=== PATIENT | female | born 1970 | race Caucasian/White ===

== ENCOUNTER 2022-07-28 01:15 | Emergency (ER) | payer MEDICAID ==
[~2022-07-28] VITALS: Ht 180.3 cm; Wt 110.7 kg
[2022-07-28 01:27] VITALS: BP_SYST 98
--- NOTE | 2022-07-28 02:00 | NUR ---
Patient to ER bed 01 to gown for evaluation. Side rails up. Report given to KIMBERLY BOOGIE.
[2022-07-28 02:15] LABS: CALCIUM 9.1 mg/dL (8.4-11.0); CREATININE 1.07 mg/dL (0.55-1.30)
[2022-07-28 02:19] LABS: BASOPHILS # (AUTO) 0.1 K/uL (0.0-0.2); BASOPHILS % (AUTO) 0.6 % (0.0-2.0); EOSINOPHILS # (AUTO) 0.6 K/uL (0.0-0.4); EOSINOPHILS % (AUTO) 4.3 % (0.0-4.0); HEMATOCRIT 45.1 % (36-48); HEMOGLOBIN 15.1 g/dL (12.0-16.0); LYMPHOCYTES # (AUTO) 1.3 K/uL (1.0-5.5); MEAN CORPUSCULAR HEMOGLOBIN 30 pg (27-31); MEAN CORPUSCULAR HGB CONC 33 % (32-36); MEAN CORPUSCULAR VOLUME 90 fL (79.0-98.0); MONOCYTES # (AUTO) 0.7 K/uL (0.0-1.0); MONOCYTES % (AUTO) 5.1 % (1.7-9.3); NEUTROPHILS # (AUTO) 10.6 K/uL (1.8-7.7); PLATELET COUNT (AUTO) 388 K/uL (130-430); RED BLOOD CELL COUNT(AUTO) 4.99 MIL/uL (4.2-6.2); RED CELL DISTRIBUTION WIDTH 14.5 % (9.0-15.0); WHITE BLOOD COUNT (AUTO) 13.2 K/uL (4.8-10.8)
[2022-07-28 02:20] LABS: ALBUMIN 3.6 g/dL (3.4-4.8); TOTAL BILIRUBIN 0.3 mg/dL (0.0-1.0)
[2022-07-28] MEDS ORDERED: NACL 0.9% 1,000 ML IV ONE (02:45)
[2022-07-28] MEDS ORDERED: KETOROLAC TROMETHAMINE 15 MG VIAL IVP ONE (03:00)
[2022-07-28 04:06] LABS: BILIRUBIN,URINE NEGATIVE (NEGATIVE); BLOOD, URINE NEGATIVE (NEGATIVE); CLARITY/URINE CLEAR (CLEAR); COLOR,URINE YELLOW (YELLOW); GLUCOSE,URINE NEGATIVE (NEGATIVE); KETONES,URINE NEGATIVE (NEGATIVE); LEUKOCYTE ESTERASE ,URINE NEGATIVE (NEGATIVE); NITRITE, URINE NEGATIVE (NEGATIVE); PH,URINE 5.5 (5.0-8.0); PROTEIN URINE NEGATIVE (NEGATIVE); UROBILINOGEN,URINE 0.2 (0.2-1.0)
--- NOTE | 2022-07-28 04:08 | NUR ---
REC REPORT FROM KIMBERLY BOOGIE. PT FROM HOME WITH C/O OF LUQ PAIN THAT RADIATES TO THE LEFT FLANK. PT STATES THE PAIN WAS SUDDEN AND 7/10. VSS. SAFETY PRECAUTIONS IN PLACE AND CONNECTED TO THE MONITOR.
--- NOTE | 2022-07-28 04:12 | NUR ---
PT O2 SAT 92% ON RA. MADE AWARE.
--- NOTE | 2022-07-28 04:17 | NUR ---
PT PUT ON 1L NC PER MD REQUEST, O2 SAT 93%. MD MADE AWARE.
--- NOTE | 2022-07-28 05:00 | NUR ---
COVID AND MRSA SAMPLES COLLECTED AND SENT TO LAB.
[2022-07-28] MEDS ORDERED: cefTRIAXone 2 GM VIAL ONE (06:06)
--- NOTE | 2022-07-28 06:44 | NUR ---
Contacted lab for covid results. Lab reports not having howard swab. Patient was swab again and sample was walked over to lab.
--- NOTE | 2022-07-28 07:10 | NUR ---
REPORT GIVEN TO KIMBERLY PICKARD TO ASSUME CARE.
--- NOTE | 2022-07-28 07:44 | NUR ---
RECEIVED PT FROM KIMBERLY WHITMAN. ASSUMED CARE. PT BEING SEEN FOR C/O ABDOMINAL PAIN S/P LAPRSCOPY SX FOR HERNIA REPAIR. PT DX WITH ABCESS AND TO BE TRANSFERRED TO [facility]. PT IS AAOX4. ON R/A. NORMAL S1S2 NOTED. ABDOMEN SOFT, TENDER, OBSESE, BOWEL SOUNDS ACTIVE X4 QUADS. DENIES N/V/D/C. MAINTAINED NPO AT THIS TIME. PT HAS 4 HEALED SURGICAL SITES TO ABDOMEN. DISTAL PULSES NORMAL, NO EDEMA, SKIN WARM CDI. PT HAS IV CATH TO LFA 20G FLUSHED AND PATENT. WNL, CDI. PT DENIES PAIN. SIDERAILS UP X2.
[2022-07-28] MEDS ORDERED: HYDR-3917 PO (08:32)
[2022-07-28 08:40] VITALS: BP_SYST 131
--- NOTE | 2022-07-28 08:42 | NUR ---
PT LEFT AMA. AMA FORMED SIGNED BY PT AND NURSE. IV CATH TO LFA 20 REMOVED INTACT. SITE WNL. COVERED WITH CDI DRESSING. PT DENIES PAIN UPON LEAVING. PT WAS GIVEN EDUCATION, LAB RESULTS AND CD OF CT SCAN.
== END 2022-07-28 08:40 | disposition left against medical advice (07) ==
LOC: SED 01:15
DX: R10.12 Left upper quadrant pain (principal); R10.13 Epigastric pain; R18.8 Other ascites; D72.829 Elevated white blood cell count, unspecified; R11.2 Nausea with vomiting, unspecified; Z87.19 Personal history of other diseases of the digestive system; Z88.8 Allergy status to other drugs, medicaments and biological substances; Z79.899 Other long term (current) drug therapy; Z20.822 Contact with and (suspected) exposure to COVID-19
CPT/HCPCS: 99285; 74177; 96365; 96361; 96375; 87426; 80053; 83690; 85025; 87081; 36415; 76376; 81003; 87040; J0696; J1885; Q9967; J7030